=== PATIENT | female | born 1930 | race African-American/Black ===

== ENCOUNTER 2018-02-18 12:24 | Inpatient (IN) ==
[2018-02-18] MEDS ORDERED: dilTIAZem Inj 125 MG in Sodium Chlor 0.9% Inj 100 ML IV.CONT PRN (13:00)
--- NOTE | 2018-02-18 13:23 | XR ---
EXAM DATE: 02/18/2018 1:21 PM EST AGE/SEX: 88 years / Female INDICATIONS: Chest pain and slow heart rate CLINICAL DATA: This is the patient's initial encounter. Patient reports that signs and symptoms have been present for 1 day and indicates a pain score of Nonresponsive. MEDICAL/SURGICAL HISTORY: Non-responsive. Non-responsive. COMPARISON: [facility] [place], CHEST SINGLE AP, 02/16/2016. . FINDINGS: Tortuous ectatic thoracic aorta with compensated cardiomegaly. Lungs are clear. There is no pleural effusion or congestive failure. CONCLUSION: Stable chest without failure. Electronically signed by: Jhonny Lewis MD 02/18/2018 1:22 PM EST
--- NOTE | 2018-02-18 13:29 | ED ---
HPI General Chief Complaint: Arrhythmia / Palpitations Stated Complaint: Heart Complaint Time Seen by Provider: 02/18/18 12:46 History of Present Illness HPI narrative: This is an 88-year-old female with a history of hypertension, hypothyroidism, hyperlipidemia, presents today with complaints of palpitations and dizziness and weakness. Patient cannot tell me the exact date this started. When she was seen in triage she had a heart rate of 150. Patient denies any chest pain, chest pressure. She does states she gets an occasional headache. The patient also reports dyspnea on exertion. Related Data Home Medications Medication Instructions Recorded Confirmed amlodipine 10 mg PO DAILY 02/18/18 02/18/18 atorvastatin 40 mg PO DAILY 02/18/18 02/18/18 levothyroxine 112 mcg PO DAILY 02/18/18 02/18/18 lisinopril 10 mg PO DAILY 02/18/18 02/18/18 Allergies Allergy/AdvReac Type Severity Reaction Status Date / Time No Known Allergies Allergy Verified 02/18/18 12:46 Review of Systems ROS: all other systems reviewed are negative Constitutional Reports system reviewed and no additional complaints, except as docu Eyes Reports system reviewed and no additional complaints, except as docu ENT Reports system reviewed and no additional complaints, except as docu Cardiovascular Denies chest pain, Reports palpitations, Reports dyspnea and Denies orthopnea Respiratory Denies chest congestion, Denies cough and Reports dyspnea Gastrointestinal Denies abdominal pain, Denies nausea and Denies vomiting Genitourinary Reports system reviewed and no additional complaints, except as docu Musculoskeletal Reports system reviewed and no additional complaints, except as docu Neurologic Denies dizziness and Reports headache(s) (Occasional, none at the time of my examination.) FOR[facility]LY [facility] Medical History Medical History HTN (hypertension) (Acute) High cholesterol (Acute) Hypothyroid (Acute) Surgical History Surgical History History of appendectomy (Acute) Social History Social History Substance History: No History of Abuse Second Hand Smoke Exposure: No Smoking Status: Never smoker How Often Do You Have a Drink Containing Alcohol: Never Immunization History Tetanus Immunization: Unsure Exam Narrative Exam Narrative: GENERAL: Well-developed well-nourished female in no acute respiratory distress. SKIN: Focused skin assessment warm/dry. HEAD: Atraumatic. Normocephalic. EYES: No scleral icterus. No injection or drainage. ENT: No nasal bleeding or discharge. Mucous membranes pink and moist. NECK: Trachea midline. Supple. CARDIOVASCULAR: Tachycardic with a rate of 150.. No murmur appreciated. RESPIRATORY: No accessory muscle use. Clear to auscultation. Breath sounds equal bilaterally. GASTROINTESTINAL: Abdomen soft, non-tender, nondistended. Hepatic and splenic margins not palpable. MUSCULOSKELETAL: No obvious deformities. No clubbing. No cyanosis. No edema. NEUROLOGICAL: Awake and alert. No obvious cranial nerve deficits. Motor grossly within normal limits. Normal speech. Course Initial Documented Vital Signs Temperature 97.8 F 02/18/18 12:31 Pulse Rate 152 H 02/18/18 12:31 Respiratory Rate 16 02/18/18 12:31 Blood Pressure 148/62 H 02/18/18 12:31 Pulse Oximetry 99 02/18/18 12:31 Last Documented Vital Signs Temperature 97.8 F 02/18/18 12:31 Pulse Rate 54 L 02/18/18 13:13 Respiratory Rate 18 02/18/18 13:13 Blood Pressure 116/74 02/18/18 13:00 Pulse Oximetry 100 02/18/18 13:13 Medical Decision Making [facility] Narrative Medical decision making narrative: This is a 88-year-old female history of hypertension, hypothyroidism, hyperlipidemia, presents today with complaints of palpitations and dyspnea. Patient was noted to be in a flutter with a 2-1 block. She is given 8 mg of IV Cardizem which converted her. She is been placed on a diltiazem drip. She will be admitted to the hospital for rate control and medication adjustment. There is a call out to the [facility] hospitalist. Medical Screen Exam Complete: Yes Emergency Medical Condition: Yes Differential Diagnosis Differential Diagnosis: Sinus tachycardia versus atrial fibrillation versus a flutter versus metabolic derangement Lab Data Result diagrams: 02/18/18 13:05 02/18/18 13:05 Lab Results 02/18/18 02/18/18 02/18/18 Range/Units 13:05 13:05 13:05 WBC 4.2 (4.0-11.0) th/mm3 RBC 4.57 (4.00-5.30) mil/mm3 Hgb 11.9 (11.6-15.3) gm/dL Hct 37.0 (35.0-46.0) % MCV 81.0 (80.0-100.0) fL MCH 26.1 L (27.0-34.0) pg MCHC 32.2 (32.0-36.0) % RDW 15.0 (11.6-17.2) % Plt Count 217 (150-450) th/mm3 MPV 9.2 (7.0-11.0) fL Neut % (Auto) 47.8 (16.0-70.0) % Lymph % (Auto) 40.6 (9.0-44.0) % O'Brien % (Auto) 9.1 H (0.0-8.0) % Eos % (Auto) 2.0 (0.0-4.0) % Baso % (Auto) 0.5 (0.0-2.0) % Neut # (Auto) 2.0 (1.8-7.7) th/mm3 Lymph # (Auto) 1.7 (1.0-4.8) th/mm3 O'Brien # (Auto) 0.4 (0.0-0.9) th/mm3 Eos # (Auto) 0.1 (0.0-0.4) th/mm3 Baso # (Auto) 0.0 (0.0-0.2) th/mm3 WBC Differential . Differential Comment Auto diff final PT 10.7 (9.8-11.6) sec INR 1.1 Ratio APTT 31.5 (23.4-31.7) sec Sodium 141 (136-145) meq/L Potassium 4.5 (3.5-5.1) meq/L Chloride 108 H (98-107) meq/L Carbon Dioxide 23.4 (21.0-32.0) meq/L Anion Gap 10 (5-15) meq/L BUN 13 (7-18) mg/dL Creatinine 1.25 H (0.50-1.00) mg/dL Estimated GFR 49 L (>89) mL/min Random Glucose 122 H (74-106) mg/dL Calcium 9.1 (8.5-10.1) mg/dL Total Bilirubin 0.4 (0.2-1.0) mg/dL AST 35 (15-37) U/L ALT 15 (10-53) U/L Alkaline Phosphatase 80 (45-117) U/L Total Creatine Kinase (26-192) U/L CK-MB (CK-2) (0.5-3.6) ng/mL Troponin I 0.05 (0.02-0.05) ng/mL Total Protein 8.2 (6.4-8.2) g/dL Albumin 3.7 (3.4-5.0) g/dL 02/18/18 Range/Units 13:05 WBC (4.0-11.0) th/mm3 RBC (4.00-5.30) mil/mm3 Hgb (11.6-15.3) gm/dL Hct (35.0-46.0) % MCV (80.0-100.0) fL MCH (27.0-34.0) pg MCHC (32.0-36.0) % RDW (11.6-17.2) % Plt Count (150-450) th/mm3 MPV (7.0-11.0) fL Neut % (Auto) (16.0-70.0) % Lymph % (Auto) (9.0-44.0) % O'Brien % (Auto) (0.0-8.0) % Eos % (Auto) (0.0-4.0) % Baso % (Auto) (0.0-2.0) % Neut # (Auto) (1.8-7.7) th/mm3 Lymph # (Auto) (1.0-4.8) th/mm3 O'Brien # (Auto) (0.0-0.9) th/mm3 Eos # (Auto) (0.0-0.4) th/mm3 Baso # (Auto) (0.0-0.2) th/mm3 WBC Differential Differential Comment PT (9.8-11.6) sec INR Ratio APTT (23.4-31.7) sec Sodium (136-145) meq/L Potassium (3.5-5.1) meq/L Chloride (98-107) meq/L Carbon Dioxide (21.0-32.0) meq/L Anion Gap (5-15) meq/L BUN (7-18) mg/dL Creatinine (0.50-1.00) mg/dL Estimated GFR (>89) mL/min Random Glucose (74-106) mg/dL Calcium (8.5-10.1) mg/dL Total Bilirubin (0.2-1.0) mg/dL AST (15-37) U/L ALT (10-53) U/L Alkaline Phosphatase (45-117) U/L Total Creatine Kinase 137 (26-192) U/L CK-MB (CK-2) 1.0 (0.5-3.6) ng/mL Troponin I (0.02-0.05) ng/mL Total Protein (6.4-8.2) g/dL Albumin (3.4-5.0) g/dL Imaging Data Radiologist's impression: Chest X-Ray 02/18/18 13:00 CONCLUSION: Stable chest without failure. Discharge Plan Discharge Disposition Patient Disposition: 30 Still Patient Discharge Details Diagnosis: Hypertension, Dyslipidemia, Hypothyroidism, Atrial flutter with rapid ventricular response Physicians Team ED Provider: Shaggy Anglin Primary Care Provider: UNKNOWN, Rxs /Orders / Referrals /Forms Prescriptions: No Action atorvastatin 40 mg Tablet 40 mg PO DAILY RF: 0 amlodipine 10 mg Tablet 10 mg PO DAILY RF: 0 lisinopril 10 mg Tablet 10 mg PO DAILY RF: 0 levothyroxine 112 mcg Capsule 112 mcg PO DAILY RF: 0 Status ED Status: With Doctor
[2018-02-18 13:58] LABS: Baso % (Auto) 0.5 % (0.0-2.0); Eos # (Auto) 0.1 th/mm3 (0.0-0.4); Hemoglobin 11.9 gm/dL (11.6-15.3); Lymph # (Auto) 1.7 th/mm3 (1.0-4.8); Lymph % (Auto) 40.6 % (9.0-44.0); Mean Corpuscular HGB Conc 32.2 % (32.0-36.0); Mean Corpuscular Hemoglobin 26.1 pg (27.0-34.0); Mean Platelet Volume 9.2 fL (7.0-11.0); Mono # (Auto) 0.4 th/mm3 (0.0-0.9); Mono % (Auto) 9.1 % (0.0-8.0); Neut % (Auto) 47.8 % (16.0-70.0); Platelet Count 217 th/mm3 (150-450); Red Blood Count 4.57 mil/mm3 (4.00-5.30); White Blood Count 4.2 th/mm3 (4.0-11.0)
[2018-02-18 14:06] LABS: Activated Partial Thrombo Time 31.5 sec (23.4-31.7); INR 1.1 Ratio; Prothrombin Time 10.7 sec (9.8-11.6)
[2018-02-18 14:28] LABS: Alkaline Phosphatase 80 U/L (45-117); Total Protein 8.2 g/dL (6.4-8.2); Troponin I 0.05 ng/mL (0.02-0.05)
[2018-02-18 14:29] LABS: Alanine Aminotransferase 15 U/L (10-53); Albumin 3.7 g/dL (3.4-5.0); Anion Gap 10 meq/L (5-15); Aspartate Aminotransferase 35 U/L (15-37); Blood Urea Nitrogen 13 mg/dL (7-18); Calcium 9.1 mg/dL (8.5-10.1); Carbon Dioxide 23.4 meq/L (21.0-32.0); Chloride 108 meq/L (98-107); Glomerular Filtration Rate 49 mL/min (>89); Glucose,Random 122 mg/dL (74-106); Sodium 141 meq/L (136-145)
[2018-02-18 14:33] LABS: Potassium 4.5 meq/L (3.5-5.1)
[2018-02-18 14:36] LABS: Creatine Kinase 137 U/L (26-192)
[2018-02-18] MEDS ORDERED: Acetaminophen 325 MG Tablet PO PRN (15:16)
[2018-02-18] MEDS: Heparin - SQ 10,000 UNITS/ML Vial SQ SCH ×2 (16:15→23:38)
--- NOTE | 2018-02-18 16:59 | P.HPIM ---
History of Present Illness Primary Care Physician: UNKNOWN Chief Complaint: Palpitations History of Present Illness: The patient is an 88-year-old female with a past medical history of hypertension and hyperlipidemia who is presenting to the hospital with palpitations. The patient was visiting her nephew and all of a sudden felt like her chest was pounding. She said she had some mild shortness of breath associated with that. She did not have any chest pain. She did have some weakness and dizziness. She says her symptoms have resolved and she wants to go home. Her family was at the bedside and stated that the patient had episodes of slow heart rates 1-2 years ago. Her medications were adjusted and her heart rate normalized. At the time the patient was told she may need a pacemaker. The patient's family states the patient was recently started on a heart medication. The patient denies having a certified forklift operator. She says she is prone to constipation and has bowel movements 1-2 times a week. Inpatient Certification: I certify that the inpatient services were ordered in accordance with Medicare regulations governing the order. This includes certification that hospital inpatient services are reasonable and necessary and in the case of services not specified as inpatient-only under 42 CFR 419.22(n), that they are appropriately provided as inpatient services in accordance to with the 2-midnight benchmark under 43 CFR 412.3(e) Estimated Total Length of Stay (Days): 2 Plans for Post Hospital Care: Home Review of Systems All other systems reviewed negative except as stated in [facility] - History History Provided By: Patient, Family Member - Medical History Medical History: Medical History (Last Updated 02/18/18 @ 16:54 by Ole Salas DO) Bradycardia HTN (hypertension) High cholesterol Hypothyroid - Surgical History Surgical History: Surgical History (Last Reviewed 02/18/18 @ 16:53 by Ole Salas DO) History of appendectomy - Social History I have reviewed the patient's Social History: Yes - Tobacco History Second Hand Smoke Exposure: No Tobacco Use In Past 30 Days: No Smoking Status: Never smoker - Alcohol History How Often Do You Have a Drink Containing Alcohol: Never - Substance Use History Substance History: No History of Abuse - Immunization History Tetanus Immunization: Unsure Medications and Allergies Active Medications: Active Medications Acetaminophen (Tylenol) 650 mg PO Q4H PRN PRN Reason: Temp > 100.4, pain 1-2 Atorvastatin Calcium (Lipitor) 40 mg PO DAILY [facility] Diltiazem HCl (Cardizem) 30 mg PO QID [facility] Heparin Sodium (Porcine) (Heparin Inj) 5,000 units SQ Q8H OTILIA Diltiazem HCl 125 mg/ Sodium (Chloride) 125 mls @ 5 mls/hr IV.CONT TITRATE PRN ; Protocol PRN Reason: Per Protocol Levothyroxine Sodium (Synthroid) 112 mcg PO DAILY@0600 OTILIA Lisinopril (Prinivil) 10 mg PO DAILY [facility] Senna/Docusate Sodium (Roselyn-Colace) 1 tab PO BID [facility] Sodium Chloride (Ns Flush) 2 ml IV.FLUSH UNSCH PRN PRN Reason: FLUSH AFTER USING IV ACCESS Last Admin: 02/18/18 13:13 Dose: 2 ml Allergies Allergy/AdvReac Type Severity Reaction Status Date / Time No Known Allergies Allergy Verified 02/18/18 12:46 Home Medications Medication Instructions Recorded Confirmed Type amlodipine 10 mg PO DAILY 02/18/18 02/18/18 History atorvastatin 40 mg PO DAILY 02/18/18 02/18/18 History levothyroxine 112 mcg PO DAILY 02/18/18 02/18/18 History lisinopril 10 mg PO DAILY 02/18/18 02/18/18 History Exam Vital signs: Vital Signs 02/18/18 12:31 02/18/18 13:00 02/18/18 13:05 Temperature 97.8 F Pulse Rate 152 H 141 H Respiratory Rate 16 20 Blood Pressure 148/62 H 116/74 Pulse Oximetry 99 100 100 02/18/18 13:13 Temperature Pulse Rate 54 L Respiratory Rate 18 Blood Pressure Pulse Oximetry 100 Intake & Output 02/17/18 02/18/18 02/18/18 18:59 06:59 18:59 Weight 63.503 kg Narrative: GENERAL: Well-developed well-nourished female in no acute distress. SKIN: Focused skin assessment warm/dry. HEAD: Atraumatic. Normocephalic. EYES: No scleral icterus. No injection or drainage. ENT: No nasal bleeding or discharge. Mucous membranes pink and moist. NECK: Trachea midline. Supple. CARDIOVASCULAR: Regular rate and rhythm. Systolic murmur appreciated. RESPIRATORY: No accessory muscle use. Clear to auscultation. Breath sounds equal bilaterally. GASTROINTESTINAL: Abdomen soft, non-tender, nondistended. Hepatic and splenic margins not palpable. MUSCULOSKELETAL: No obvious deformities. No clubbing. No cyanosis. No edema. NEUROLOGICAL: Awake and alert. No obvious cranial nerve deficits. Motor grossly within normal limits. Normal speech. Results - Labs CBC & Chem 7: 02/18/18 13:05 02/18/18 13:05 Labs: Short CBC 02/18/18 Range/Units 13:05 WBC 4.2 (4.0-11.0) th/mm3 Hgb 11.9 (11.6-15.3) gm/dL Hct 37.0 (35.0-46.0) % Plt Count 217 (150-450) th/mm3 BMP 02/18/18 13:05 Sodium 141 Potassium 4.5 Chloride 108 H Carbon Dioxide 23.4 BUN 13 Creatinine 1.25 H Calcium 9.1 Cardiac Enzymes 02/18/18 02/18/18 Range/Units 13:05 13:05 Total Creatine Kinase 137 (26-192) U/L CK-MB (CK-2) 1.0 (0.5-3.6) ng/mL Troponin I 0.05 (0.02-0.05) ng/mL Liver Function 02/18/18 Range/Units 13:05 Total Bilirubin 0.4 (0.2-1.0) mg/dL AST 35 (15-37) U/L ALT 15 (10-53) U/L Alkaline Phosphatase 80 (45-117) U/L Albumin 3.7 (3.4-5.0) g/dL - Imaging Impressions Chest X-Ray 02/18/18 13:00 CONCLUSION: Stable chest without failure. Caprini VTE Risk Assessment Caprini VTE Risk Assessment: Moderate/High Risk (score >= 2) Caprini Risk Assessment Model: Point Value = 1 Point Value = 2 Point Value = 3 Point Value = 5 Age 41-60 Minor surgery BMI > 25 kg/m2 Swollen legs Varicose veins or History of unexplained or recurrent spontaneous Oral contraceptives or hormone replacement Sepsis (< 1 month) Serious lung disease, including pneumonia (< 1 month) Abnormal pulmonary function Acute myocardial infarction Congestive heart failure (< 1 month) History of inflammatory bowel disease Medical patient at bed rest Age 61-74 Arthroscopic surgery Major open surgery (> 45 min) Laparoscopic surgery (> 45 min) Malignancy Confined to bed (> 72 hours) Immobilizing plaster cast Central venous access Age >= 75 History of VTE Family history of VTE Factor V Leiden Prothrombin [id number] Lupus anticoagulant Anticardiolipin antibodies Elevated serum homocysteine Heparin-induced thrombocytopenia Other congenital or acquired thrombophilia Stroke (< 1 month) Elective arthroplasty Hip, pelvis, or leg fracture Acute spinal cord injury (< 1 month) Prophylaxis Regimen: Total Risk Factor Score Risk Level Prophylaxis Regimen 0-1 Low Early ambulation 2 Moderate Order ONE of the following: *Sequential Compression Device (SCD) *Heparin 5000 units SQ BID 3-4 Higher Order ONE of the following medications: *Heparin 5000 units SQ TID *Enoxaparin/Lovenox 40 mg SQ daily (WT < 150 kg, CrCl > 30 mL/min) *Enoxaparin/Lovenox 30 mg SQ daily (WT < 150 kg, CrCl > 10-29 mL/min) *Enoxaparin/Lovenox 30 mg SQ BID (WT < 150 kg, CrCl > 30 mL/min) AND/OR *Sequential Compression Device (SCD) 5 or more Highest Order ONE of the following medications: *Heparin 5000 units SQ TID (Preferred with Epidurals) *Enoxaparin/Lovenox 40 mg SQ daily (WT < 150 kg, CrCl > 30 mL/min) *Enoxaparin/Lovenox 30 mg SQ daily (WT < 150 kg, CrCl > 10-29 mL/min) *Enoxaparin/Lovenox 30 mg SQ BID (WT < 150 kg, CrCl > 30 mL/min) AND *Sequential Compression Device (SCD) Assessment and Plan - Plan Atrial flutter EKG with atrial flutter with a 2-1 block. Resolved following Cardizem drip and bolus. The patient states that she has had problems with slow heart rates in the past and almost had a pacemaker placed. TSH is slightly elevated. -Check an echocardiogram. -Consult cardiology as patient has had bradycardia in the past. -Trend troponins. -Monitor on telemetry. -Start p.o. Cardizem with holding parameters. -add a baby ASA. Hypertension Well controlled at this time. -Resume home regimen. Added Cardizem, holding amlodipine. Hypothyroidism TSH is slightly elevated. -Continue levothyroxine with outpatient follow-up. PPx: Heparin Code Status: Full
[2018-02-18] MEDS ORDERED: dilTIAZem 60 MG Tablet PO SCH (18:00)
[2018-02-18] MEDS: dilTIAZem 60 MG Tablet PO SCH (19:02)
[2018-02-18] MEDS: Senna/Docusate Sodium 8.6/50 MG Tablet PO SCH (20:35)
[2018-02-19] MEDS: dilTIAZem 60 MG Tablet PO SCH ×5 (01:32→22:48)
[2018-02-19 02:33] LABS: Baso % (Auto) 0.5 % (0.0-2.0); Eos # (Auto) 0.1 th/mm3 (0.0-0.4); Eos % (Auto) 2.6 % (0.0-4.0); Hematocrit 31.1 % (35.0-46.0); Hemoglobin 9.9 gm/dL (11.6-15.3); Lymph # (Auto) 2.1 th/mm3 (1.0-4.8); Lymph % (Auto) 48.8 % (9.0-44.0); Mean Corpuscular Hemoglobin 25.6 pg (27.0-34.0); Mean Platelet Volume 8.5 fL (7.0-11.0); Mono # (Auto) 0.5 th/mm3 (0.0-0.9); Mono % (Auto) 10.8 % (0.0-8.0); Neut # (Auto) 1.6 th/mm3 (1.8-7.7); Neut % (Auto) 37.3 % (16.0-70.0); Platelet Count 187 th/mm3 (150-450); Red Blood Count 3.89 mil/mm3 (4.00-5.30); Red Cell Distribution Width 15.1 % (11.6-17.2); White Blood Count 4.3 th/mm3 (4.0-11.0)
[2018-02-19 03:16] LABS: Alanine Aminotransferase 12 U/L (10-53); Alkaline Phosphatase 71 U/L (45-117); Anion Gap 9 meq/L (5-15); Aspartate Aminotransferase 18 U/L (15-37); Blood Urea Nitrogen 15 mg/dL (7-18); Calcium 8.4 mg/dL (8.5-10.1); Chloride 110 meq/L (98-107); Glomerular Filtration Rate 52 mL/min (>89); Glucose,Random 97 mg/dL (74-106); Sodium 144 meq/L (136-145); Total Protein 6.7 g/dL (6.4-8.2)
[2018-02-19 03:20] LABS: Troponin I 1.04 ng/mL (0.02-0.05)
[2018-02-19] MEDS: Levothyroxine 112 MCG Tablet PO SCH (05:02)
[2018-02-19] MEDS ORDERED: Lisinopril 10 MG Tablet PO SCH (09:00)
--- NOTE | 2018-02-19 10:01 | MB ---
cc: Silas Cisse MD DATE: 02/19/2018 REASON FOR CONSULTATION: Tachycardia, history of bradycardia. HISTORY OF PRESENT ILLNESS: The patient is an 88-year-old female with a history of hypertension, hyperlipidemia, hypothyroidism, who was in her usual state of health up until yesterday afternoon when she developed rapid fluttering palpitations associated with moderate lightheadedness and generalized weakness. She is unclear as to the duration of these symptoms, but at least an hour. She reports similar fluttering palpitations for most of her life, although they have occurred infrequently. She denies chest pain, shortness of breath, pedal edema, paroxysmal nocturnal dyspnea, syncope, near syncope. She does her daily activities without difficulty. PAST MEDICAL HISTORY: 1. Hypertension. 2. Hyperlipidemia. 3. Hypothyroidism. PAST SURGICAL HISTORY: Appendectomy. CARDIAC MEDICATIONS AT HOME: 1. Amlodipine 10 mg daily. 2. Lisinopril 10 mg daily. 3. Atorvastatin 40 mg at bedtime. ALLERGIES: NO KNOWN DRUG ALLERGIES. FAMILY HISTORY: Noncontributory. SOCIAL HISTORY: The patient denies any history of alcohol or tobacco abuse. REVIEW OF SYSTEMS: As in history of present illness, otherwise negative or noncontributory. She also denies headache, abdominal pain, melena, dyspepsia, bright red blood per rectum. PHYSICAL EXAMINATION: VITAL SIGNS: Her blood pressure 160/76 with a pulse of 45, respirations 18. GENERAL: She is a well-developed, well-nourished female in no acute distress. NECK: Jugular venous pressure is normal. Carotid pulses are 2+ bilaterally and without bruits. CHEST: Reveals clear lungs ha[place]on. CARDIAC: She has a bradycardic, regular rhythm without S3 or S4. There is a grade 2/6 systolic ejection murmur heard at the base of the heart. There is also possibly a second blowing systolic murmur at the apex. The S2 heart sound is present. ABDOMEN: She has a soft, nontender abdomen. Bowel sounds are present. There is no definite hepatosplenomegaly. EXTREMITIES: Reveal no clubbing, cyanosis or edema. DIAGNOSTIC DATA: EKG shows possible atrial tachycardia with 2:1 AV conduction, inferior and lateral ST and T-wave abnormalities, consider ischemia. Chest x-ray shows no acute disease. LABORATORY DATA: Includes WBC 4.3, hemoglobin 9.9, platelets 187. Potassium 4.0, BUN 15, creatinine 1.19. Troponin 1.04, CK 137. IMPRESSION: Symptomatic paroxysmal atrial tachyarrhythmia, possibly atrial tachycardia or atypical flutter, slightly abnormal troponin levels in this 88-year-old female with a history of hypertension, hyperlipidemia, hypothyroidism. At this time, she is back in sinus bradycardia. Overall, I doubt these slight elevations in troponin are due to acute coronary syndrome. They are more likely due to the tachyarrhythmia sustained yesterday. There is no definite evidence for congestive heart failure. Her echocardiogram is pending. It will indeed be very difficult to treat her dysrhythmia medically given her underlying bradycardia. RECOMMENDATIONS: Consult Dr. Cindy Stephens regarding possible ablation, given the limitations using medical therapy for her tachyarrhythmia. MD FENG Cano/homer , 09:44 AM , 09:52 AM [email or web address]
[2018-02-19] MEDS: Heparin - SQ 10,000 UNITS/ML Vial SQ SCH ×3 (10:49→23:04)
[2018-02-19] MEDS: Senna/Docusate Sodium 8.6/50 MG Tablet PO SCH ×2 (10:50→21:19)
--- NOTE | 2018-02-19 10:59 | P.PNIM ---
Subjective Interval history: The patient was anxious to go home. Her family was present at the bedside. The patient said she talked with the heart doctor. She denied any palpitations , chest pain or shortness of breath. Physical Exam Vital signs: Vital Signs 02/18/18 12:31 02/18/18 13:00 02/18/18 13:05 Temperature 97.8 F Pulse Rate 152 H 141 H Respiratory Rate 16 20 Blood Pressure 148/62 H 116/74 Pulse Oximetry 99 100 100 02/18/18 13:13 02/18/18 14:00 02/18/18 15:00 Temperature Pulse Rate 54 L 54 L 50 L Respiratory Rate 18 16 18 Blood Pressure 186/77 H 171/73 H Pulse Oximetry 100 100 02/18/18 16:00 02/18/18 17:00 02/18/18 18:00 Temperature 98.7 F Pulse Rate 53 L 58 L 62 Respiratory Rate 20 16 18 Blood Pressure 181/79 H 182/78 H 194/108 H Pulse Oximetry 100 100 98 02/18/18 19:00 02/18/18 19:46 02/18/18 20:00 Temperature 98.2 F Pulse Rate 56 L 66 56 L Respiratory Rate 17 Blood Pressure 165/90 H Pulse Oximetry 99 100 02/18/18 20:36 02/18/18 21:00 02/18/18 22:00 Temperature Pulse Rate 51 L 53 L Respiratory Rate Blood Pressure 174/76 H Pulse Oximetry 02/18/18 23:00 02/19/18 00:00 02/19/18 01:00 Temperature 97.8 F Pulse Rate 51 L 52 L 51 L Respiratory Rate 16 Blood Pressure 146/83 H Pulse Oximetry 97 02/19/18 02:00 02/19/18 03:00 02/19/18 03:44 Temperature 98.0 F Pulse Rate 58 L 46 L 47 L Respiratory Rate 18 Blood Pressure 160/76 H Pulse Oximetry 98 02/19/18 04:00 02/19/18 05:00 02/19/18 06:00 Temperature Pulse Rate 45 L 48 L 45 L Respiratory Rate Blood Pressure Pulse Oximetry 02/19/18 09:14 Temperature Pulse Rate Respiratory Rate Blood Pressure Pulse Oximetry 99 Intake & Output 02/18/18 02/19/18 02/19/18 18:59 06:59 18:59 Intake Total 200 / 200 240 / 240 Balance 200 / 200 240 / 240 Weight 63.503 kg 54.7 kg Intake: Oral 200 / 200 240 / 240 Other: # Voids 1 1 Date of Last Bowel Movement 02/16/18 02/16/18 Narrative: GENERAL: Well-developed well-nourished female in no acute distress. SKIN: Focused skin assessment warm/dry. HEAD: Atraumatic. Normocephalic. EYES: No scleral icterus. No injection or drainage. ENT: No nasal bleeding or discharge. Mucous membranes pink and moist. NECK: Trachea midline. Supple. CARDIOVASCULAR: Regular rate and rhythm. Systolic murmur appreciated, best heard in the right upper sternal border. RESPIRATORY: No accessory muscle use. Clear to auscultation. Breath sounds equal bilaterally. GASTROINTESTINAL: Abdomen soft, non-tender, nondistended. Hepatic and splenic margins not palpable. MUSCULOSKELETAL: No obvious deformities. No clubbing. No cyanosis. No edema. NEUROLOGICAL: Awake and alert. No obvious cranial nerve deficits. Motor grossly within normal limits. Normal speech. Results - Labs CBC & Chem 7: 02/19/18 02:23 02/19/18 02:23 Laboratory Results - last 24 hr 02/18/18 02/18/18 02/18/18 13:05 13:05 13:05 WBC 4.2 RBC 4.57 Hgb 11.9 Hct 37.0 MCV 81.0 MCH 26.1 L MCHC 32.2 RDW 15.0 Plt Count 217 MPV 9.2 Neut % (Auto) 47.8 Lymph % (Auto) 40.6 [place] % (Auto) 9.1 H Eos % (Auto) 2.0 Baso % (Auto) 0.5 Neut # (Auto) 2.0 Lymph # (Auto) 1.7 [place] # (Auto) 0.4 Eos # (Auto) 0.1 Baso # (Auto) 0.0 WBC Differential . Differential Comment Auto diff final PT 10.7 INR 1.1 APTT 31.5 Sodium 141 Potassium 4.5 Chloride 108 H Carbon Dioxide 23.4 Anion Gap 10 BUN 13 Creatinine 1.25 H Estimated GFR 49 L Random Glucose 122 H Calcium 9.1 Total Bilirubin 0.4 AST 35 ALT 15 Alkaline Phosphatase 80 Total Creatine Kinase CK-MB (CK-2) Troponin I 0.05 Total Protein 8.2 Albumin 3.7 TSH 4.570 H 02/18/18 02/18/18 02/18/18 13:05 13:05 20:15 WBC RBC Hgb Hct MCV MCH MCHC RDW Plt Count MPV Neut % (Auto) Lymph % (Auto) [place] % (Auto) Eos % (Auto) Baso % (Auto) Neut # (Auto) Lymph # (Auto) [place] # (Auto) Eos # (Auto) Baso # (Auto) WBC Differential Differential Comment PT INR APTT Sodium Potassium Chloride Carbon Dioxide Anion Gap BUN Creatinine Estimated GFR Random Glucose Calcium Total Bilirubin AST ALT Alkaline Phosphatase Total Creatine Kinase 137 CK-MB (CK-2) 1.0 Troponin I 0.93 H* D Total Protein Albumin TSH Cancelled 02/19/18 02/19/18 02:23 02:23 WBC 4.3 RBC 3.89 L Hgb 9.9 L D Hct 31.1 L MCV 80.0 MCH 25.6 L MCHC 32.0 RDW 15.1 Plt Count 187 MPV 8.5 Neut % (Auto) 37.3 Lymph % (Auto) 48.8 H [place] % (Auto) 10.8 H Eos % (Auto) 2.6 Baso % (Auto) 0.5 Neut # (Auto) 1.6 L Lymph # (Auto) 2.1 [place] # (Auto) 0.5 Eos # (Auto) 0.1 Baso # (Auto) 0.0 WBC Differential . Differential Comment Auto diff final PT INR APTT Sodium 144 Potassium 4.0 Chloride 110 H Carbon Dioxide 25.0 Anion Gap 9 BUN 15 Creatinine 1.19 H Estimated GFR 52 L Random Glucose 97 Calcium 8.4 L Total Bilirubin 0.2 AST 18 ALT 12 Alkaline Phosphatase 71 Total Creatine Kinase CK-MB (CK-2) Troponin I 1.04 H* D Total Protein 6.7 D Albumin 3.0 L D TSH - Imaging Impressions Chest X-Ray 02/18/18 13:00 CONCLUSION: Stable chest without failure. Assessment and Plan - Plan Atrial flutter EKG with atrial flutter with a 2-1 block. Resolved following Cardizem drip and bolus. The patient states that she has had problems with slow heart rates in the past and almost had a pacemaker placed. TSH is slightly elevated. HR currently in the 40s. Trops peaked at 1.04. Cardiology consult appreciated. -Check an echocardiogram. -EP consult pending for possible ablation. -Monitor on telemetry. -Start p.o. Cardizem with holding parameters. -add a baby ASA. Hypertension Well controlled at this time. -Resume home regimen. Added Cardizem, holding amlodipine. Hypothyroidism TSH is slightly elevated. -Continue levothyroxine with outpatient follow-up. Anemia May be dilutional. -follow CBC. PPx: Heparin
--- NOTE | 2018-02-19 11:37 | ECHRPT ---
Indication: Atrial Fib and Flutter CONCLUSIONS Normal left ventricular size. Wall thickness is measured at the upper limits of normal. The left ventricular systolic function is normal with an estimated ejection fraction in the range of 60-65%. No regional wall motion abnormalities are present. Trileaflet aortic valve. Diffuse moderate calcification of the aortic valve. Mild aortic valve regu rgitation. Mild aortic valve stenosis with a mean transvalvular gradient of 16 mm Hg. There is mild tricuspid valve regurgitation. The estimated pulmonary arterial pressure is 46 mmHg. BP: / HR: Rhythm: MEASUREMENTS (Male / Female) Normal Values Technical Quality:Good 2D ECHO LV Diastolic Diameter PLAX 3.9 cm 4.2 - 5.9 / 3.9 - 5.3 cm LV Systolic Diameter PLAX 2.5 cm IVS Diastolic Thickness 0.9 cm 0.6 - 1.0 / 0.6 - 0.9 cm LVPW Diastolic Thickness 1.0 cm 0.6 - 1.0 / 0.6 - 0.9 cm LV Relative Wall Thickness 0.5 RV Internal Dim ED PLAX 2.3 cm LVOT Diameter 1.8 cm Aortic Root Diameter 2.8 cm LA Systolic Diameter LX 3.1 cm 3.0 - 4.0 / 2.7 - 3.8 cm DOPPLER AV Peak Velocity 278.0 cm/s AV Peak Gradient 30.9 mmHg AV Mean Gradient 16.0 mmHg AV Velocity Time Integral 71.7 cm AI Peak Velocity 473.0 cm/s AI Peak Gradient 89.5 mmHg AI Pressure Half Time 743.5 ms LVOT Peak Velocity 102.0 cm/s LVOT Peak Gradient 4.2 mmHg LVOT Velocity Time Integral 25.6 cm AV Area Cont Eq vti 0.9 cm AV Area Cont Eq pk 0.9 cm Mitral E Point Velocity 115.0 cm/s Mitral A Point Velocity 114.0 cm/s Mitral E to A Ratio 1.0 LV E' Lateral Velocity 8.2 cm/s Mitral E to LV E' Lateral Ratio 14.0 LV E' Septal Velocity 5.3 cm/s Mitral E to LV E' Septal Ratio 21.9 TR Peak Velocity 299.0 cm/s TR Peak Gradient 35.8 mmHg Right Atrial Pressure 10.0 mmHg Pulmonary Artery Systolic Pressu 45.8 mmHg Right Ventricular Systolic Press 45.8 mmHg PV Peak Velocity 137.0 cm/s PV Peak Gradient 7.5 mmHg FINDINGS LEFT VENTRICLE Normal left ventricular size. Wall thickness is measured at the upper limits of normal. The left ventricular systolic function is normal with an estimated ejection fraction in the range of 60-65%. No regional wall motion abnormalities are present. RIGHT VENTRICLE Normal right ventricular size and systolic function. LEFT ATRIUM The left atrial size is normal. RIGHT ATRIUM The right atrial size is normal. ATRIAL SEPTUM Normal atrial septal thickness without atrial level shunting by limited color doppler interrogation. AORTA The aortic root and proximal ascending aorta are normal in size on limited imaging. MITRAL VALVE Structurally normal mitral valve. No mitral valve stenosis or regurgitation. AORTIC VALVE Trileaflet aortic valve. Diffuse moderate calcification of the aortic valve. Mild aortic valve regu rgitation. Mild aortic valve stenosis with a mean transvalvular gradient of 16 mm Hg. TRICUSPID VALVE There is mild tricuspid valve regurgitation. The estimated pulmonary arterial pressure is 46 mmHg. PULMONARY VALVE No pulmonary valve regurgitation or stenosis. VESSELS The inferior vena cava is normal in size. PERICARDIUM No pericardial effusion. Silas Cisse MD (Electronically Signed) Final Date:19 February 2018 11:36
--- NOTE | 2018-02-19 15:17 | ECG ---
Date Performed: 02/18/2018 Time Performed: 12:52:24 PTAGE: 88 years EKG: ATRIAL FLUTTER/TACHYCARDIA WITH RAPID VENTRICULAR RESPONSE NONSPECIFIC ST & T-WAVE ABNORMAL ITY ABNORMAL RHYTHM ECG Compared to PREVIOUS TRACING , the patient is now in atrial flutter with rapid ventricular rate. PREV IOUS TRACIN02/16/2016 14.51.13 DOCTOR: Marisol Uriarte Interpretating Date/Time 02/19/2018 15:15:22
[2018-02-19] MEDS: Lisinopril 10 MG Tablet PO SCH (18:00)
[2018-02-19] MEDS ORDERED: hydrALAZINE 25 MG Tablet PO ONE (20:57)
[2018-02-19] MEDS ORDERED: hydrALAZINE HCl Inj 20 MG/ML Vial IV.PUSH ONE (21:00)
[2018-02-20] MEDS: Levothyroxine 112 MCG Tablet PO SCH (05:49)
[2018-02-20 06:59] LABS: Hemoglobin 10.7 gm/dL (11.6-15.3); Mean Corpuscular HGB Conc 32.4 % (32.0-36.0); Mean Corpuscular Hemoglobin 25.8 pg (27.0-34.0); Mean Corpuscular Volume 79.6 fL (80.0-100.0); Mean Platelet Volume 8.8 fL (7.0-11.0); Platelet Count 198 th/mm3 (150-450); Red Blood Count 4.14 mil/mm3 (4.00-5.30); Red Cell Distribution Width 14.8 % (11.6-17.2); White Blood Count 4.5 th/mm3 (4.0-11.0)
[2018-02-20 07:24] LABS: Potassium 4.3 meq/L (3.5-5.1)
[2018-02-20] MEDS: Lisinopril 10 MG Tablet PO SCH (08:42)
[2018-02-20] MEDS: dilTIAZem 60 MG Tablet PO SCH ×2 (08:42→12:04)
[2018-02-20] MEDS: Heparin - SQ 10,000 UNITS/ML Vial SQ SCH ×2 (08:42→15:34)
[2018-02-20] MEDS: Senna/Docusate Sodium 8.6/50 MG Tablet PO SCH (08:43)
[2018-02-20 08:52] VITALS: RESP 16
--- NOTE | 2018-02-20 12:49 | ECG ---
Date Performed: 02/19/2018 Time Performed: 10:20:22 PTAGE: 88 years EKG: Sinus bradycardia. Prolonged QT interval Anteroseptal T wave changes are nonspecific Border line ECG NO PREVIOUS TRACING DOCTOR: Donte Talbot Interpretating Date/Time 02/20/2018 12:44:44
[2018-02-20] MEDS ORDERED: Lisinopril 10 MG Tablet PO SCH (12:54)
--- NOTE | 2018-02-20 12:56 | P.PNIM ---
Subjective Interval history: The patient had no acute complaints. Her family was at the bedside. The patient was anxious to go home. Discussed with nursing. Physical Exam Vital signs: Vital Signs 02/19/18 13:00 02/19/18 14:00 02/19/18 15:00 Temperature Pulse Rate 54 L 55 L 53 L Respiratory Rate Blood Pressure Pulse Oximetry 02/19/18 16:00 02/19/18 17:00 02/19/18 18:00 Temperature 97.5 F L Pulse Rate 54 L 51 L 55 L Respiratory Rate 16 Blood Pressure 187/78 H Pulse Oximetry 98 02/19/18 19:00 02/19/18 20:00 02/19/18 20:05 Temperature 97.4 F L Pulse Rate 51 L 53 L Respiratory Rate 18 Blood Pressure 205/100 H Pulse Oximetry 97 98 02/19/18 21:00 02/19/18 22:00 02/19/18 23:00 Temperature Pulse Rate 55 L 58 L 65 Respiratory Rate Blood Pressure Pulse Oximetry 02/20/18 00:00 02/20/18 01:00 02/20/18 02:00 Temperature 97.8 F Pulse Rate 72 64 63 Respiratory Rate 16 Blood Pressure 174/86 H Pulse Oximetry 100 02/20/18 03:00 02/20/18 04:00 02/20/18 05:00 Temperature 98.1 F Pulse Rate 62 56 L 57 L Respiratory Rate 17 Blood Pressure 138/72 Pulse Oximetry 99 02/20/18 06:00 02/20/18 07:00 02/20/18 08:00 Temperature 97.9 F Pulse Rate 69 58 L 58 L Respiratory Rate 16 Blood Pressure 137/73 Pulse Oximetry 97 02/20/18 09:00 02/20/18 09:07 02/20/18 09:29 Temperature Pulse Rate 60 58 L Respiratory Rate Blood Pressure Pulse Oximetry 94 L 02/20/18 11:00 02/20/18 12:00 Temperature 98.1 F Pulse Rate 51 L 47 L Respiratory Rate 16 Blood Pressure 158/80 H Pulse Oximetry 97 Intake & Output 02/19/18 02/20/18 02/20/18 18:59 06:59 18:59 Intake Total 780 / 780 480 / 480 Output Total 400 / 400 Balance 780 / 780 80 / 80 Weight 54.7 kg Intake: Oral 780 / 780 480 / 480 Output: Urine 400 / 400 Other: # Voids 3 4 Date of Last Bowel Movement 02/19/18 02/19/18 # Bowel Movements 2 2 Narrative: GENERAL: Well-developed well-nourished female in no acute distress. SKIN: Focused skin assessment warm/dry. HEAD: Atraumatic. Normocephalic. EYES: No scleral icterus. No injection or drainage. ENT: No nasal bleeding or discharge. Mucous membranes pink and moist. NECK: Trachea midline. Supple. CARDIOVASCULAR: Regular rate and rhythm. Systolic murmur appreciated, best heard in the right upper sternal border. RESPIRATORY: No accessory muscle use. Clear to auscultation. Breath sounds equal bilaterally. GASTROINTESTINAL: Abdomen soft, non-tender, nondistended. Hepatic and splenic margins not palpable. MUSCULOSKELETAL: No obvious deformities. No clubbing. No cyanosis. No edema. NEUROLOGICAL: Awake and alert. No obvious cranial nerve deficits. Motor grossly within normal limits. Normal speech. Results - Labs CBC & Chem 7: 02/20/18 06:34 02/20/18 06:34 Laboratory Results - last 24 hr 02/20/18 02/20/18 06:34 06:34 WBC 4.5 RBC 4.14 Hgb 10.7 L Hct 33.0 L MCV 79.6 L MCH 25.8 L MCHC 32.4 RDW 14.8 Plt Count 198 MPV 8.8 Sodium 141 Potassium 4.3 Chloride 108 H Carbon Dioxide 25.0 Anion Gap 8 BUN 15 Creatinine 1.12 H Estimated GFR 56 L Random Glucose 99 Calcium 9.0 Assessment and Plan - Plan Atrial flutter EKG with atrial flutter with a 2-1 block. Resolved following Cardizem drip and bolus. The patient states that she has had problems with slow heart rates in the past and almost had a pacemaker placed. TSH is slightly elevated. HR currently in the 40s. Trops peaked at 1.04. Cardiology consult appreciated. Echo : Normal EF; Mild aortic valve regurgitation; Mild aortic valve stenosis with a mean transvalvular gradient of 16 mm Hg; There is mild tricuspid valve regurgitation. -EP consult pending. -Monitor on telemetry. -hold p.o. Cardizem s/t bradycardia. -added a baby ASA. Hypertension Not well controlled. -Resume home regimen. Increase lisinopril. Hypothyroidism TSH is slightly elevated. -Continue levothyroxine with outpatient follow-up. Anemia May be dilutional. -follow CBC. Improved. PPx: Heparin
[2018-02-20] MEDS ORDERED: Lisinopril 10 MG Tablet PO ONE (13:10)
[2018-02-20 15:45] VITALS: BP 156/53; TEMP 98.4; O2SAT 98
[2018-02-20 17:22] VITALS: PULSE 65
--- NOTE | 2018-02-20 18:02 | P.DS ---
Date of admission: 02/18/18 15:16 Primary care physician: UNKNOWN Anticipated date of discharge: 02/20/18 Brief History from admission: The patient is an 88-year-old female with a past medical history of hypertension and hyperlipidemia who is presenting to the hospital with palpitations. The patient was visiting her nephew and all of a sudden felt like her chest was pounding. She said she had some mild shortness of breath associated with that. She did not have any chest pain. She did have some weakness and dizziness. She says her symptoms have resolved and she wants to go home. Her family was at the bedside and stated that the patient had episodes of slow heart rates 1-2 years ago. Her medications were adjusted and her heart rate normalized. At the time the patient was told she may need a pacemaker. The patient's family states the patient was recently started on a heart medication. 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 She says she is prone to constipation and has bowel movements 1-2 times a week. DS: Diagnosis - Discharge Diagnosis (1) Hypertension Status: Acute (2) Atrial flutter with rapid ventricular response Status: Acute DS: Summary Hospital Course: Atrial flutter EKG with atrial flutter with a 2-1 block. Resolved following Cardizem drip and bolus. The patient states that she has had problems with slow heart rates in the past and almost had a pacemaker placed. TSH is slightly elevated. HR in the 40s at times. Trops peaked at 1.04. She was monitored on telemetry. Cardiology was consulted. Echo: Normal EF; Mild aortic valve regurgitation; Mild aortic valve stenosis with a mean transvalvular gradient of 16 mm Hg; There is mild tricuspid valve regurgitation. Cardizem was held s/t bradycardia. EP was consulted. The pt was cleared for discharge by cardiology and will be brought back later this month for an ablation procedure. She will continue a baby ASA. Hypertension The pt will resume her home regimen and will follow up with cardiology. Hypothyroidism TSH is slightly elevated. We continued levothyroxine and she will follow-up with her PCP as an outpatient. - Time Spent with Patient Total time spent providing and/or coordinating discharge services: Greater than 30 minutes Exam Vital signs: Vital Signs 02/19/18 19:00 02/19/18 20:00 02/19/18 20:05 Temperature 97.4 F L Pulse Rate 51 L 53 L Respiratory Rate 18 Blood Pressure 205/100 H Pulse Oximetry 97 98 02/19/18 21:00 02/19/18 22:00 02/19/18 23:00 Temperature Pulse Rate 55 L 58 L 65 Respiratory Rate Blood Pressure Pulse Oximetry 02/20/18 00:00 02/20/18 01:00 02/20/18 02:00 Temperature 97.8 F Pulse Rate 72 64 63 Respiratory Rate 16 Blood Pressure 174/86 H Pulse Oximetry 100 02/20/18 03:00 02/20/18 04:00 02/20/18 05:00 Temperature 98.1 F Pulse Rate 62 56 L 57 L Respiratory Rate 17 Blood Pressure 138/72 Pulse Oximetry 99 02/20/18 06:00 02/20/18 07:00 02/20/18 08:00 Temperature 97.9 F Pulse Rate 69 58 L 58 L Respiratory Rate 16 Blood Pressure 137/73 Pulse Oximetry 97 02/20/18 09:00 02/20/18 09:07 02/20/18 09:29 Temperature Pulse Rate 60 58 L Respiratory Rate Blood Pressure Pulse Oximetry 94 L 02/20/18 11:00 02/20/18 12:00 02/20/18 13:00 Temperature 98.1 F Pulse Rate 51 L 47 L 61 Respiratory Rate 16 Blood Pressure 158/80 H Pulse Oximetry 97 02/20/18 13:58 02/20/18 14:11 02/20/18 15:39 Temperature Pulse Rate 64 53 L 52 L Respiratory Rate Blood Pressure Pulse Oximetry 02/20/18 15:44 02/20/18 17:00 02/20/18 17:21 Temperature 98.4 F Pulse Rate 50 L 63 65 Respiratory Rate 16 Blood Pressure 156/53 H Pulse Oximetry 98 Intake & Output 02/19/18 02/20/18 02/20/18 18:59 06:59 18:59 Intake Total 780 / 780 480 / 480 720 / 720 Output Total 400 / 400 850 / 850 Balance 780 / 780 80 / 80 -130 / -130 Weight 54.7 kg Intake: Oral 780 / 780 480 / 480 720 / 720 Output: Urine 400 / 400 850 / 850 Other: # Voids 3 4 Date of Last Bowel Movement 02/19/18 02/19/18 02/20/18 # Bowel Movements 2 2 1 Results Procedures completed during hospitalization: None Labs on day of discharge: Labs from last 24 hours 02/20/18 02/20/18 06:34 06:34 WBC 4.5 RBC 4.14 Hgb 10.7 L Hct 33.0 L MCV 79.6 L MCH 25.8 L MCHC 32.4 RDW 14.8 Plt Count 198 MPV 8.8 Sodium 141 Potassium 4.3 Chloride 108 H Carbon Dioxide 25.0 Anion Gap 8 BUN 15 Creatinine 1.12 H Estimated GFR 56 L Random Glucose 99 Calcium 9.0 - Impressions ITS Impressions Chest X-Ray 02/18/18 13:00 CONCLUSION: Stable chest without failure. Discharge Plan - Discharge Disposition Patient Disposition: Discharge Home - Discharge Condition Condition: Stable - Discharge Order Discharge Orders: Discharge Order (Routine); Ordered 02/20/18 Ordered By: Ole Salas - Discharge Details Anticipated Discharge Date: 02/20/18 - Physicians Team Primary Care Provider: BARBARA, Attending Provider: Ole Salas Other Providers: Julio Estrada, DO ; [employer]
--- NOTE | 2018-02-20 23:44 | MB ---
cc: Cindy Stephens MD , Josue,Ole Brenner,Julio Patterson DO DATE: 02/20/2018 REASON FOR CONSULTATION: Supraventricular tachyarrhythmia. HISTORY OF PRESENT ILLNESS: Ms. 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 During hospitalization, IV Cardizem was given. The patient developed bradycardia and I was consulted for evaluation and management. The chart was reviewed. The patient was evaluated. ALLERGIES: NONE. SOCIAL HISTORY: The patient denies smoking and drinking. FAMILY HISTORY: Noncontributory to her current medical condition. MEDICATIONS: She is on: 1. Lipitor 40 mg a day. 2. Cardizem 20 mg 4 times a day. 3. Lisinopril 10 mg a day. REVIEW OF SYSTEMS: She is feeling better currently. No chest pain ____ discomfort, but having palpitation more frequent. PHYSICAL EXAMINATION: GENERAL: Alert, fully oriented. VITAL SIGNS: Blood pressure 156/53, pulse 50, respiratory rate 18. LUNGS: Ventilated. CARDIOVASCULAR: S1, S2. There is a systolic ejection murmur. ABDOMEN: Soft. No masses or bruit. EXTREMITIES: No edema. DIAGNOSTIC DATA: Electrocardiogram on hospitalization shows supraventricular tachycardia with a short VA time. Subsequently echocardiogram showed sinus rhythm. ____ tachyarrhythmia was around 150 beats per minute. LABORATORY DATA: Hemoglobin 10.7, white blood cell 4.5. INR 1.1. Potassium 4.3, creatinine 1.12 and troponin 0.93. ASSESSMENT AND RECOMMENDATIONS: Ms. Agustin has tachyarrhythmia for years. Even in her 20s, she was having on and off palpitations. She was not experiencing them for years, but came got back again around 1 or 2 years ago. During tachyarrhythmia, maximum predicted heart rate is around 120 beats per minute. She was maintaining her heart rate around 150 apparently due to lack of cardiac reserve. This is why troponin increased. She has a short VA time tachyarrhythmia. 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 Electrophysiology study and ablation discussed with her. For now, Ms. Agustin want to go home and want to schedule the procedure as an outpatient. I am going to discontinue the Cardizem p.o. Case discussed with Dr. Salas. The patient can be discharged home and ablation will be scheduled as an outpatient. MD ZONIA Solomon/richie/madelyn , 09:06 PM , 09:16 PM
[2018-02-21] MEDS ORDERED: amLODIPine 10 MG Tablet PO SCH (09:00)
== END 2018-02-20 18:39 | disposition home or self-care (01) ==
LOC: NEPC 12:24 → NEDA 15:16 → HCIS 17:37
PROVIDERS: ADMIT Hospitalist; ATTEND Hospitalist